=== PATIENT | female | born 1950 | race Caucasian/White ===

== ENCOUNTER → 2023-07-22 09:08 | Outpatient (REF) | payer MEDICARE, BC, SELFPAY ==
[2023-07-24 13:45] LABS: Cardiolipin IgA Antibody <10 APL (<=11); Cardiolipin IgM Antibody 16 MPL (<=12); Cardiolipin Igg Antibody <10 GPL (<=14)
[2023-07-24 18:26] LABS: Beta-2-Glycoprotein I Ab. IgG <10 SGU (<=20); Beta-2-Glycoprotein I Ab. IgM 90 SMU (<=20)
== END ==
LOC: REG 09:08
PROVIDERS: ATTENDING PHYSICIAN Internal Medicine Hematology & Oncology; FAMILY PHYSICIAN Family Medicine
DX: R79.9 Abnormal finding of blood chemistry, unspecified (principal)
CPT/HCPCS: 36415; 86146; 86147

== ENCOUNTER → 2023-10-21 15:39 | Outpatient (REF) | payer MEDICARE, BC, SELFPAY | LOC: RAD 15:39 | PROVIDERS: ATTENDING PHYSICIAN Family Medicine | DX: R05.1 Acute cough (principal); B34.9 Viral infection, unspecified | CPT/HCPCS: 71046 ==

== ENCOUNTER → 2023-11-07 08:15 | Outpatient (REF) | payer MEDICARE, BC, SELFPAY | LOC: WDC 08:15 | PROVIDERS: ATTENDING PHYSICIAN Internal Medicine Hematology & Oncology; FAMILY PHYSICIAN Family Medicine | DX: Z12.31 Encounter for screening mammogram for malignant neoplasm of breast (principal) | CPT/HCPCS: 77063; 77067 ==

== ENCOUNTER → 2023-11-12 10:25 | Outpatient (REF) | payer MEDICARE, BC, SELFPAY | LOC: WDC 10:25 | PROVIDERS: ATTENDING PHYSICIAN Internal Medicine Hematology & Oncology; FAMILY PHYSICIAN Family Medicine | DX: R92.8 Other abnormal and inconclusive findings on diagnostic imaging of breast (principal) | CPT/HCPCS: 76642 ==

== ENCOUNTER → 2023-12-09 16:25 | Outpatient (REF) | payer MEDICARE, BC, SELFPAY | LOC: RAD 16:25 | PROVIDERS: ATTENDING PHYSICIAN Psychiatry & Neurology Neurology; FAMILY PHYSICIAN Family Medicine | DX: R42 Dizziness and giddiness (principal) | CPT/HCPCS: 72050 ==

== ENCOUNTER → 2023-12-31 12:32 | Outpatient (REF) | payer MEDICARE, BC, SELFPAY | LOC: RCS 12:32 | PROVIDERS: ATTENDING PHYSICIAN Nurse Practitioner; FAMILY PHYSICIAN Family Medicine | DX: R00.2 Palpitations (principal) | CPT/HCPCS: 93306 ==

== ENCOUNTER → 2024-01-27 14:28 | Outpatient (REF) | payer MEDICARE, BC, SELFPAY | LOC: RAD 14:28 | PROVIDERS: ATTENDING PHYSICIAN Family Medicine | DX: M25.561 Pain in right knee (principal) | CPT/HCPCS: 73564 ==

== ENCOUNTER 2024-02-09 01:52 | Emergency (ER) | payer MEDICARE, BC, SELFPAY ==
[2024-02-09] VITALS (7 sets, daily range): BP systolic 136–183; BP diastolic 61–96; BMI 23.3
[2024-02-09 02:17] LABS: Glucose - Point of Care 129 mg/dl (70-99)
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
[2024-02-09 03:29] LABS: % Basophils 0.7 % (0-2); % Eosinophils 3.1 % (0-6); % Immature Granulocytes 0.3 % (0-0.5); % Lymphocytes 43.6 % (20.5-51.1); % Monocytes 9.7 % (1.7-9.3); % Neutrophils 42.6 % (42.2-75.2); Absolute Basophils 0.1 10^3/uL (0-0.2); Absolute Eosinophils 0.3 10^3/uL (0-0.7); Absolute Lymphocytes 3.9 10^3/uL (1.2-3.4); Absolute Monocytes 0.9 10^3/uL (0.1-0.6); Absolute Neutrophils 3.8 10^3/uL (1.4-6.5); Hematocrit 38.1 % (37.0-47.0); Hemoglobin 13.1 g/dL (12.0-16.0); Mean Corp Hgb Conc. 34.4 g/dL (33.0-37.0); Mean Corpuscular Hgb 28.7 pg (27.0-31.0); Mean Corpuscular Volume 83.6 fL (81.0-99.0); Mean Platelet Volume 10.3 fL (7.4-10.4); Nucleated Red Blood Cells % 0 %; Platelet Count 311 10^3/uL (130-400); Red Blood Cell Count 4.56 10^6/uL (4.20-5.40); Red Cell Dist. Width 14.5 % (11.5-14.5); White Blood Cell Count 8.9 10^3/uL (4.8-10.8)
[2024-02-09 03:47] LABS: ALT (SGPT) 35 U/L (0-35); AST (SGOT) 41 U/L (14-36); Albumin 4.5 g/dl (3.5-5.0); Alkaline Phosphatase 120 U/L (38-126); Blood Urea Nitrogen 26 mg/dl (7-17); Calcium 9.6 mg/dl (8.4-10.2); Carbon Dioxide 26 mmol/L (22-30); Chloride 104 mmol/L (98-107); Estimated Creatinine Clearance 52 ml/min; Glucose 129 mg/dl (70-99); Potassium 3.6 mmol/L (3.5-5.1); Sodium 143 mmol/L (135-145); Total Bilirubin 0.4 mg/dl (0.2-1.3); Total Protein 7.3 g/dl (6.3-8.2); eGFR > 60.00
[2024-02-09 03:58] LABS: Troponin I < 0.012 ng/ml
== END 2024-02-09 05:40 | disposition home or self-care (01) ==
LOC: EMR 01:52
PROVIDERS: Student in an Organized Health Care Education/Training Program; EMERGENCY PHYSICIAN Emergency Medicine; FAMILY PHYSICIAN Family Medicine
DX: R20.2 Paresthesia of skin (principal); R00.2 Palpitations
CPT/HCPCS: 99283; 80053; 82962; 84484; 85025; 93005

== ENCOUNTER → 2024-02-24 14:29 | Outpatient (REF) | payer MEDICARE, BC, SELFPAY ==
[2024-02-24 15:55] LABS: ALT (SGPT) 27 U/L (0-35); AST (SGOT) 26 U/L (14-36); Albumin 4.6 g/dl (3.5-5.0); Alkaline Phosphatase 109 U/L (38-126); Blood Urea Nitrogen 20 mg/dl (7-17); Calcium 9.6 mg/dl (8.4-10.2); Carbon Dioxide 25 mmol/L (22-30); Chloride 105 mmol/L (98-107); Glucose 100 mg/dl (70-99); Iron 60 ug/dl (37-170); Potassium 4.2 mmol/L (3.5-5.1); Sodium 143 mmol/L (135-145); Total Bilirubin 0.4 mg/dl (0.2-1.3); Total Protein 7.5 g/dl (6.3-8.2); eGFR > 60.00
[2024-02-24 16:04] LABS: Percent Saturation 19 % (20-50); Total Iron Binding Capacity 305 ug/dl (265-497)
[2024-02-24 16:10] LABS: Vitamin D, 25-OH*** 20.2 ng/mL (30-80)
[2024-02-24 16:59] LABS: Folate 14.9 ng/ml (2.76-20)
[2024-02-24 17:57] LABS: Vitamin B12 636 pg/ml (239-931)
[2024-02-27 10:17] LABS: Angiotensin-1-converting Enzym 24 U/L (16-85)
== END ==
LOC: REG 14:29
PROVIDERS: ATTENDING PHYSICIAN Psychiatry & Neurology Neurology; FAMILY PHYSICIAN Family Medicine
DX: R42 Dizziness and giddiness (principal); D52.9 Folate deficiency anemia, unspecified; G60.9 Hereditary and idiopathic neuropathy, unspecified; E55.9 Vitamin D deficiency, unspecified
CPT/HCPCS: 36415; 80053; 82164; 82306; 82607; 82746; 83540; 83550; 84207; 84425; 84446; 86235; 86618

== ENCOUNTER → 2024-03-20 14:00 | Outpatient (REF) | payer MEDICARE, BC, SELFPAY | LOC: HWRAD 14:00 | PROVIDERS: ATTENDING PHYSICIAN Psychiatry & Neurology Neurology; FAMILY PHYSICIAN Family Medicine | DX: G45.9 Transient cerebral ischemic attack, unspecified (principal) | CPT/HCPCS: 93880 ==

== ENCOUNTER → 2024-04-01 14:24 | Outpatient (REF) | payer MEDICARE, BC, SELFPAY ==
[2024-04-01 15:56] LABS: Calcium 9.7 mg/dl (8.4-10.2); Creatine Phosphokinase 55 U/L (30-135); HDL Cholesterol 98 mg/dl; LDL Cholesterol, Calculated 87 mg/dl; Total Cholesterol 212 mg/dl (50-199); Triglyceride 137 mg/dl (10-149); Very Low Density Lipoprotein 27 mg/dl (0-30)
[2024-04-01 16:07] LABS: Intact PTH 54.7 pg/ml (13.6-85.8)
[2024-04-01 16:39] LABS: Erythrocyte Sed Rate 22 mm/hour (0-20)
[2024-04-02 08:52] LABS: Glycohemoglobin (HgbA1c) 5.7 % (4.0-5.6)
[2024-04-03 22:38] LABS: Aldolase 4.1 U/L (1.2-7.6)
== END ==
LOC: REG 14:24
PROVIDERS: ATTENDING PHYSICIAN Psychiatry & Neurology Neurology; FAMILY PHYSICIAN Family Medicine
DX: M79.10 Myalgia, unspecified site (principal); G45.9 Transient cerebral ischemic attack, unspecified; Z78.9 Other specified health status; R79.82 Elevated C-reactive protein (CRP); R73.09 Other abnormal glucose
CPT/HCPCS: 36415; 80061; 82085; 82550; 83036; 83735; 83970; 85652; 86141

== ENCOUNTER → 2024-04-10 12:58 | Outpatient (REF) | payer MEDICARE, BC, SELFPAY ==
[2024-04-10 14:54] LABS: % Basophils 0.9 % (0-2); % Eosinophils 1.7 % (0-6); % Immature Granulocytes 0.3 % (0-0.5); % Lymphocytes 31.5 % (20.5-51.1); % Monocytes 8.4 % (1.7-9.3); % Neutrophils 57.2 % (42.2-75.2); Absolute Basophils 0.1 10^3/uL (0-0.2); Absolute Eosinophils 0.1 10^3/uL (0-0.7); Absolute Lymphocytes 2.1 10^3/uL (1.2-3.4); Absolute Monocytes 0.6 10^3/uL (0.1-0.6); Absolute Neutrophils 3.7 10^3/uL (1.4-6.5); Hemoglobin 12.9 g/dL (12.0-16.0); Mean Corp Hgb Conc. 33.1 g/dL (33.0-37.0); Mean Corpuscular Hgb 27.9 pg (27.0-31.0); Mean Corpuscular Volume 84.4 fL (81.0-99.0); Mean Platelet Volume 9.8 fL (7.4-10.4); Nucleated Red Blood Cells % 0 %; Platelet Count 314 10^3/uL (130-400); Red Blood Cell Count 4.62 10^6/uL (4.20-5.40); Red Cell Dist. Width 13.8 % (11.5-14.5); White Blood Cell Count 6.5 10^3/uL (4.8-10.8)
[2024-04-10 14:57] LABS: INR 0.99; PT 12.9 Sec (11.4-14.6)
[2024-04-10 14:58] LABS: APTT 32.3 Sec (23.4-35.0)
== END ==
LOC: REG 12:58
PROVIDERS: ATTENDING PHYSICIAN Nurse Practitioner Acute Care; FAMILY PHYSICIAN Family Medicine
DX: R79.9 Abnormal finding of blood chemistry, unspecified (principal); I26.99 Other pulmonary embolism without acute cor pulmonale; R23.3 Spontaneous ecchymoses
CPT/HCPCS: 36415; 85025; 85610; 85730

== ENCOUNTER 2024-12-10 00:04 | Emergency (ER) | payer MEDICARE, BC, SELFPAY ==
[2024-12-10 00:18] VITALS: BP 174/77
[2024-12-10 00:23] VITALS: BP 174/77; BMI 26.5
[2024-12-10 01:00] VITALS: BP 164/73
--- NOTE | 2024-12-10 01:27 | ED.GENMED ---
History of Present Illness
General
Chief Complaint: Visual Problem
Source: patient and spouse
Exam Limitations: none
Time Seen by Provider: 12/10/24 00:44
Nursing documentation reviewed up to this point in time: agreed with
History of Present Illness
History of Present Illness:
Note:
CHIEF COMPLAINT(S)
Visual disturbances and headache.
HISTORY OF PRESENT ILLNESS
The patient is a 73-year-old female with a history of similar episodes three years ago, where visual disturbances accompanied by headaches prompted an emergency room visit and a computed tomography (CT) scan that showed no acute findings. She
reports the recurrence of these symptoms starting a month ago, initially infrequent, but increasing in frequency over the past few weeks. In the last four days, she has experienced episodes every day, including three times on the day of the visit,
leading to significant concern.
The patient describes her visual disturbances as waves and zigzag patterns affecting both eyes. She has consulted her primary care physician, who advised a visit to the emergency room if symptoms persisted. Additionally, she consulted an eye doctor
who could not attribute her symptoms to any specific ocular condition and recommended further evaluation. The eye doctor suggested returning for a dilated eye exam at a later date due to lack of an available driver guide.
Concurrently, the patient reports chronic and worsening neck discomfort, describing it as 'spasm' localized to the back of her neck. She has undergone physical therapy in the past but notes no significant improvement. The patient also describes
persistent dizziness and impaired balance, which she distinguishes from vertigo she experiences due to dietary sensitivities.
REVIEW OF SYSTEMS
- Vision: Waves and zigzag patterns in both eyes.
- Headache: Occasional, affecting the back of the head.
- Neck: Chronic pain, described as 'jam' sensations.
- Neurological: Dizziness (distinguished from vertigo), balance issues.
PHYSICAL EXAM
- Vision: No nystagmus observed; pupils appeared normal.
Nursing notes reviewed and vital signs reviewed.
PROBLEM LIST
Acute Problems:
1. Visual disturbances
2. Headache
3. Neck pain
PLAN
1. Perform a computed tomography (CT) scan of the head to evaluate for any acute changes or underlying conditions contributing to visual disturbances and headache.
2. Conduct basic blood work, including a complete blood count (CBC) and comprehensive metabolic panel (CMP), as well as inflammatory markers, to assess for any underlying inflammatory or systemic issues.
DIFFERENTIAL DIAGNOSIS
The Differential Diagnosis includes, in no particular order and is not limited to:
1. Ocular migraine
2. Cervical spine pathology (e.g., cervical spondylosis)
3. Transient ischemic attack
4. Intracranial hemorrhage
5. Stroke
6. Posterior circulation ischemia
7. Retinal detachment or other ocular pathology
8. Vestibular disorder
9. Cervical dystonia
10. Giant cell arteritis
Disposition:
SUMMARY OF ENCOUNTER
The patient, a 73-year-old female, presented to the emergency department with visual disturbances described as waves and zigzag patterns affecting both eyes, along with headaches localized to the back of her head. These symptoms have been recurring
for the past month, increasing in frequency, with daily episodes over the last four days. She also reports chronic neck discomfort and dizziness, which is distinct from vertigo. A CT scan of the head was performed to evaluate for any acute changes,
and lab work was conducted, with all results showing no acute findings and labs within normal limits.
DISPOSITION
Discharge.
ASSESSMENT
The findings are consistent with a likely diagnosis of ocular migraines, as no acute changes were revealed in the CT scan and lab results were normal.
PLAN
The patient is advised to follow up with her primary care physician and return for further evaluation, possibly including a dilated eye exam with the eye doctor, due to the persistent visual disturbances.
INDEPENDENT REVIEW OF LABS AND INTERPRETATION OF TESTS
My independent review of the lab work shows results within normal limits.
My independent review of the CT scan interpretation shows no acute changes or abnormalities.
FOLLOW-UP INSTRUCTIONS
Please call the office immediately to schedule a follow-up visit with your primary care physician and consider rescheduling the dilated eye exam with your eye doctor.
MEDICATION RECONCILIATION
Prescription medication was considered but ultimately not given after discussion given current stability, unless further symptoms develop.
MEDICAL DECISION MAKING
- Number and Complexity of Problems Addressed: Chronic conditions affecting care with a history of similar episodes three years ago. Differential diagnosis includes ocular migraine, cervical spine pathology, transient ischemic attack, intracranial
hemorrhage, stroke, posterior circulation ischemia, retinal detachment, vestibular disorder, cervical dystonia, and giant cell arteritis.
- Data:
Category 1: Tests reviewed include CT scan and lab work, which were both found to be normal.
- Risk:
Consideration of Admission/Observation: Escalation of care including admission/observation was considered given the complexity and risk of the patients presenting complaint, exam findings, and their underlying comorbidities. However, ultimately the
patient is deemed safe for outpatient management with close follow-up due to reassuring work-up results, stable condition upon reevaluation, and stable vitals.
DIAGNOSIS
1. Ocular migraines (G43.109)
Past History
Past History
ED Past Medical History: Other (hypoglycemia, vertigo)
ED Past Surgical History: Other (pilonidal cyst)
Patient has exhibited threatening behavior?: No
Social History
Tobacco: Non-smoker
Alcohol: None
Drug: None
Personal:
Living: with family
Phy Exam
General Physical Exam
General Presentation: well appearing and no apparent distress
General Skin: warm and dry
General Habitus: normal
General Mental: alert
General Hydration: appears well hydrated
ENT Exam
ENT Exam: EOMI, pharynx normal, neck supple and normocephalic
Eye Exam
Eye Exam: PERRL, cornea clear and conjunctiva normal
Cardiovascular Exam
Cardiovascular Exam: regular rate/rhythm, no edema, no murmur and normal peripheral pulses
Pulmonary Exam
Pulmonary Exam: lungs clear, no respiratory distress, no rales, no crackles, no rhonchi, no stridor, no wheezing and no cough
Gastrointestinal Exam
Gastrointestinal Exam: normal bowel sounds, non tender, soft, no organomegaly, no pulsatile mass and non distended
Neurological Exam
Neurological Exam: alert, oriented x3, no motor deficits and speech normal
Musculoskeletal Exam
Musculoskeletal Exam: full ROM and no edema
Skin Exam
Skin Exam: normal color, warm/dry, no rash and no petechia
Psychiatric Exam
Psychiatric Exam: normal mood/affect
Course
Orders/Labs/Results
Orders:
Orders
12/10/24 01:13
CT Head W/o Iv Contrast Urgent
Comment:
Reason For Exam: HEADACHE
12/10/24 01:18
CRP [C-Reactive Protein] Urgent
Complete Blood Count/With Diff Urgent
Comprehensive Metabolic Panel Urgent
Erythrocyte Sed Rate Urgent
Abnormal Lab Results
12/10/24
01:18
Absolute Monos (auto) 0.7 H 10^3/uL
(0.1-0.6)
Chloride 109 H mmol/L
(98-107)
BUN 23 H mg/dl
(7-17)
Glucose 128 H mg/dl
(70-99)
12/10/24 01:18
12/10/24 01:18
Vital Signs
Initial and Last Documented VS:
Initial Vital Signs
Temp Pulse Resp Pulse Ox
98.3 F 113 26 98
12/10/24 00:09 12/10/24 00:09 12/10/24 00:09 12/10/24 00:09
Last Documented Vital Signs
Temp Pulse Resp BP Pulse Ox
98.3 F 94 22 164/73 94
12/10/24 00:09 12/10/24 01:07 12/10/24 01:07 12/10/24 01:00 12/10/24 02:00
*Pulse Oximetry
SaO2: 98
Oxygen Mode of Delivery: Room air
Patient hypoxic: no
*Critical Care Note
Total Time (30-74mins, 75-104mins- exclusive of procedures): Not Applicable
Update Note
Update Note:
Patient does not want any treatment for her symptoms. She states that she follows a more holistic approach
ED Attending Note
-
Portions of this chart may have been created with voice recognition software.� Occasional wrong word or��sound alike� substitutions may have occurred due to the inherent limitations of voice recognition software.
Discharge Plan
Departure
Patient Disposition: Home (Routine Discharge)
Date of Disposition: 12/10/24
Time of Disposition: 02:12
Patient with high blood pressure during this ER visit?: Yes
Discharge Problem:
Ocular migraine, Floaters in visual field
Instructions: Floaters in the Eye, Migraine in adults, BLOOD PRESSURE
Prescriptions:
No Action
ondansetron 4 MG tablet,disintegrating
4 mg PO TIDPRN PRN (Reason: nausea/vomiting) Qty: 7 0RF
Referrals:
Moe Veloz MD [[facility]] - Keep scheduled appt
UNKNOWN - PT DOES,NOT KNOW [Unknown Provider]
Activity Restrictions/Additional Instructions:
Thank You for choosing [facility].
It was a pleasure meeting you and taking part in your care. We hope for your continued healing and wellness.
Please read discharge instructions in their entirety. However, they are for general education and may not describe your exact diagnosis at discharge. Information on your ER visit and medical conditions were discussed with you along with appropriate
follow up information...
If indicated, please take your medications as instructed and indicated on discharge paperwork.
Please schedule a follow up appointment as directed. Call to schedule an appointment
Please return to the emergency department with ANY change in, persisting, or worsening of symptoms. If any of your symptoms do not improve, or persist, or become more severe within 6-12 hours, please return to the emergency department for further
care.
Please return to the emergency department if you develop a headache, neck pain/stiffness, fever greater than 100.4F, chest pain, shortness of breath, persistent nausea, vomiting, slurred speech, difficulty walking, numbness/tingling, weakness, signs
of infection or any other symptoms that are worrisome to you.
If you have any questions or concerns please do not hesitate to call the Hospital at
Interventions
Interventions:
*Risk Screen - Suicide Last Done: 12/10/24 00:09
*General Assessment Last Done: 12/10/24 00:09
*Neglect/Abuse Screening Last Done: 12/10/24 02:51
*ED- Fall Risk Assessment Last Done: 12/10/24 02:51
*ED COVID-19 Vaccine History Last Done: 12/10/24 02:51
*Nursing Disposition Last Done: 12/10/24 02:51
ED- Neurological Assessment Last Done: 12/10/24 01:05
ED-EENT Assessment Last Done: 12/10/24 01:05
Discharge Date and Time
Discharge Date/Time: 12/10/24 02:52
Print Language: ARMENIAN
[2024-12-10 01:58] LABS: Hematocrit 39.0 % (37.0-47.0); Hemoglobin 13.2 g/dL (12.0-16.0); Mean Corp Hgb Conc. 33.8 g/dL (33.0-37.0); Mean Corpuscular Volume 84.8 fL (81.0-99.0); Nucleated Red Blood Cells % 0 %; Platelet Count 286 10^3/uL (130-400); Red Cell Dist. Width 14.0 % (11.5-14.5)
[2024-12-10 02:10] LABS: ALT (SGPT) 24 U/L (0-35); AST (SGOT) 23 U/L (14-36); Albumin 4.6 g/dl (3.5-5.0); Alkaline Phosphatase 94 U/L (38-126); Blood Urea Nitrogen 23 mg/dl (7-17); Calcium 9.7 mg/dl (8.4-10.2); Carbon Dioxide 24 mmol/L (22-30); Chloride 109 mmol/L (98-107); Estimated Creatinine Clearance 57 ml/min; Glucose 128 mg/dl (70-99); Potassium 3.9 mmol/L (3.5-5.1); Sodium 141 mmol/L (135-145); Total Protein 7.5 g/dl (6.3-8.2); eGFR > 60.00
[2024-12-10 02:14] LABS: C-Reactive Protein < 5.00 mg/L (0.0-10.00)
== END 2024-12-10 02:52 | disposition home or self-care (01) ==
LOC: EMR 00:04
PROVIDERS: EMERGENCY PHYSICIAN Student in an Organized Health Care Education/Training Program; FAMILY PHYSICIAN Family Medicine
DX: G43.109 Migraine with aura, not intractable, without status migrainosus (principal); H53.9 Unspecified visual disturbance; R03.0 Elevated blood-pressure reading, without diagnosis of hypertension
CPT/HCPCS: 99285; 70450; 80053; 85025; 85652; 86140

== ENCOUNTER → 2025-02-03 14:16 | Outpatient (REF) | payer MEDICARE, BC, SELFPAY | LOC: RCS 14:16 | PROVIDERS: ATTENDING PHYSICIAN Family Medicine; REFERRING PHYSICIAN Internal Medicine Cardiovascular Disease | DX: R00.2 Palpitations (principal) | CPT/HCPCS: 93005 ==

== ENCOUNTER → 2025-05-19 14:48 | Outpatient (REF) | payer MEDICARE, BC, SELFPAY | LOC: RAD 14:48 | PROVIDERS: ATTENDING PHYSICIAN Family Medicine | DX: M79.605 Pain in left leg (principal) | CPT/HCPCS: 93971 ==

== ENCOUNTER 2025-06-03 22:47 | Emergency (ER) | payer MEDICARE, BC, SELFPAY ==
[2025-06-03 22:59] VITALS: BP 186/97
--- NOTE | 2025-06-03 23:58 | ED.GENMED ---
History of Present Illness
General
Chief Complaint: Breathing Problem
Time Seen by Provider: 06/03/25 23:34
Nursing documentation reviewed up to this point in time: agreed with
History of Present Illness
History of Present Illness:
74-year-old female presents to the ER for evaluation of a feeling of pressure in her upper abdomen and shortness of breath that started while she was watching television. Patient states that she has been under a tremendous amount of stress as her
was recently hospitalized. She states that she has had this similar type of discomfort in the past and she believes it has been related to either panic attack or hypoglycemia. Patient drank some priscilla cadence on the way to the ER and states
that the symptoms completely resolved. She denies any recent issues with dyspepsia. She has been eating and drinking normally. She denies any cough or cold symptoms. She has no prior personal history of ACS.
Past History
Past History
ED Past Medical History: Other (hypoglycemia, vertigo)
ED Past Surgical History: Other (pilonidal cyst)
Patient has exhibited threatening behavior?: No
Social History
Tobacco: Non-smoker
Alcohol: None
Drug: None
Personal:
Living: with family
Review of Systems
Review of Systems
Allergies reviewed?: Yes
Phy Exam
Physical Exam
Physical Exam:
Patient is awake, alert, appears in no acute distress, head is NCAT, PERRL, EOMI mucous membranes moist, conjunctiva pink, heart regular rate and rhythm without murmurs or ectopy, lungs are clear to auscultation without wheezes rales or rhonchi, no
JVD, abdomen is soft and nontender on palpation, extremities without edema, GCS is 15
Scores
Heart Failure Risk
Heart Failure Risk Score: Not Applicable
Course
Orders/Labs/Results
Orders:
Orders
06/03/25 22:49
EKG [Electrocardiogram (*1)] Urgent
Reason for Study: Shortness of Breath
EKG- Treatment ONCE
Vital Signs
Initial and Last Documented VS:
Initial Vital Signs
Temp Pulse Resp BP Pulse Ox
97.7 F 90 18 186/97 99
06/03/25 22:59 06/03/25 22:59 06/03/25 22:59 06/03/25 22:59 06/03/25 22:59
Last Documented Vital Signs
Temp Pulse Resp BP Pulse Ox
97.7 F 90 18 [id number] 99
06/03/25 22:59 06/03/25 22:59 06/03/25 22:59 06/03/25 22:59 06/03/25 22:59
MDM/Problems Addressed
Differential Diagnosis Includes:
Differential diagnosis considered but not limited to esophageal spasm, biliary colic, ACS, panic along with other etiologies considered
Chronic conditions affecting care:
None
*Pulse Oximetry
SaO2: 99
Oxygen Mode of Delivery: Room air
Patient hypoxic: no
*EKG
Interpreted by ED Provider?: Yes (I independently viewed and interpreted twelve-lead EKG showing normal sinus rhythm, rate 93, leftward axis, right bundle brach block, no ST elevation, this is an abnormal tracing without evidence for acute ischemia,
similar to prior from 02/03/2025)
*Chemical Processor Interpretation
Rate: normal (I independently viewed and interpreted rhythm strip showing sinus rhythm with right bundle branch block)
*Critical Care Note
Total Time (30-74mins, 75-104mins- exclusive of procedures): Not Applicable
Update Note
Update Note:
Upon meeting the patient, she tells me that she feels well and would like to be discharged. She notes she is not having a heart attack. I discussed with her reassuring EKG, however would benefit from labs and further assessment. Patient expressed
her risk of leaving without any further workup and would like to be discharged. Will provide cardiology referral information. Patient left the department in good condition.
ED Attending Note
-
Portions of this chart may have been created with voice recognition software.� Occasional wrong word or��sound alike� substitutions may have occurred due to the inherent limitations of voice recognition software.
Discharge Plan
Departure
Patient Disposition: Home (Routine Discharge)
Date of Disposition: 06/03/25
Time of Disposition: 23:50
Patient with high blood pressure during this ER visit?: No
Discharge Problem:
Chest pain
Instructions: Chest Pain CBC Follow Up
Prescriptions:
No Action
ondansetron 4 MG tablet,disintegrating
4 mg PO TIDPRN PRN (Reason: nausea/vomiting) Qty: 7 0RF
Referrals:
Aldair Perry DO [Family Provider, Family Practice]
Activity Restrictions/Additional Instructions:
Please follow-up with your primary care physician for reevaluation and further care. Return to the ER for any concerns
Interventions
Interventions:
*Risk Screen - Suicide (C-SSRS) Last Done: 06/03/25 22:59
Discharge Date and Time
Print Language: GABONESE
--- NOTE | 2025-06-04 00:11 | EDRN ---
Upon entering patient's room, patient reports she is feeling better and does not want further work up at this time. MD Cuellar and this RN stressed the importance of further work up to rule out life threatening conditions like heart attack. Patient
verbalizes her understanding and reports she wants to go home now. Patient to be discharged. RN and MD Cuellar stressed the importance for patient to return if her symptoms return or new symptoms develop like dizziness, heartburn or shortness of
breath. Patient verbalizes her understanding.
== END 2025-06-04 00:02 | disposition home or self-care (01) ==
LOC: EMR 22:47
PROVIDERS: EMERGENCY PHYSICIAN Emergency Medicine; FAMILY PHYSICIAN Family Medicine
DX: R07.9 Chest pain, unspecified (principal); R06.02 Shortness of breath; I45.10 Unspecified right bundle-branch block
CPT/HCPCS: 99283; 93005